=== PATIENT | female | born 1990 | race Caucasian/White ===

== ENCOUNTER 2018-03-18 13:06 | Emergency (ER) | payer SELFPAY ==
[2018-03-18] MEDS ORDERED: AMOXicillin 250 MG CAP ONE (13:23)
== END 2018-03-18 13:30 | disposition home or self-care (01) ==
LOC: BURERS 13:06
DX: J03.90 Acute tonsillitis, unspecified (principal); F31.9 Bipolar disorder, unspecified; F17.210 Nicotine dependence, cigarettes, uncomplicated; Z79.899 Other long term (current) drug therapy
CPT/HCPCS: 99283

== ENCOUNTER 2021-07-16 14:57 | Emergency (ER) | payer MEDICAID, SELFPAY ==
[2021-07-16] MEDS ORDERED: Dexamethasone 10 MG/ML VIAL ONE (15:25)
[2021-07-16] MEDS ORDERED: Morphine 10 MG/ML VIAL ONE (15:25)
== END 2021-07-16 16:13 | disposition home or self-care (01) ==
LOC: BURERS 14:57
DX: M54.9 Dorsalgia, unspecified (principal); G89.29 Other chronic pain; F17.210 Nicotine dependence, cigarettes, uncomplicated; Z76.0 Encounter for issue of repeat prescription; Z79.899 Other long term (current) drug therapy; Z98.890 Other specified postprocedural states
CPT/HCPCS: 96372; 99283; J1100; J2270

== ENCOUNTER 2021-07-17 11:11 | Emergency (ER) | payer SELFPAY ==
[2021-07-17] MEDS ORDERED: Ketorolac Tromethamine 30 MG/ML VIAL ONE (11:33)
== END 2021-07-17 11:40 | disposition home or self-care (01) ==
LOC: BURERS 11:11
DX: G89.29 Other chronic pain (principal); M54.50 Low back pain, unspecified; F17.210 Nicotine dependence, cigarettes, uncomplicated
CPT/HCPCS: 96372; 99282; J1885